=== PATIENT | female | born 1985 | race Caucasian/White ===

== ENCOUNTER 2016-12-11 15:54 | Emergency (ER) | payer OTHER, MEDICAID ==
[~2016-12-11] VITALS: Ht 157.5 cm; Wt 61.0 kg
[2016-12-11 15:59] VITALS: Ht 157.5 cm; Wt 61.0 kg
[2016-12-11 18:39] LABS: ADD UMIC YES; URINE BILIRUBIN (Dip) NEGATIVE (NEGATIVE); URINE BLOOD (Dip) 3+ (NEGATIVE); URINE COLOR LT. YELLOW (YELLOW); URINE GLUCOSE (Dip) NEGATIVE (NEGATIVE); URINE KETONES (Dip) NEGATIVE (NEGATIVE); URINE LEUKOCYTE ESTERASE (Dip) NEGATIVE (NEGATIVE); URINE NITRITE (Dip) NEGATIVE (NEGATIVE); URINE TOTAL PROTEIN (Dip) NEGATIVE (NEGATIVE); URINE UROBILINOGEN (Dip) 1.0 E.U./dL (0.1-1.0)
[2016-12-11 19:04] LABS: BACTERIA,URINE MODERATE; MUCUS,URINE MODERATE; SQUAMOUS EPITHELIAL CELL,UR FEW
[2016-12-11 19:29] LABS: ADD SCAN DIFF NO
[2016-12-11 19:32] LABS: BASOPHILS % 0.8 % (0.0-2.0); EOSINOPHILS # 0.2 10^3/ul (0.0-0.5); EOSINOPHILS % 4.7 % (0.0-7.0); HEMATOCRIT 36.6 % (37.0-47.0); HEMOGLOBIN 12.9 g/dl (12.0-16.0); LYMPHOCYTES # 1.8 10^3/ul (0.8-2.9); MEAN CORPUSCULAR HEMOGLOBIN 31.8 pg (29.0-33.0); MEAN CORPUSCULAR HGB CONC 35.2 g/dl (32.0-37.0); MEAN CORPUSCULAR VOLUME 90.1 fl (82.0-101.0); MEAN PLATELET VOLUME 11.3 fl (7.4-10.4); MONOCYTE # 0.5 10^3/ul (0.3-0.9); MONOCYTES % 9.2 % (0.0-11.0); NEUTROPHIL # 2.4 10^3/ul (1.6-7.5); NEUTROPHILS % 49.1 % (39.0-77.0); PLATELET COUNT 184 10^3/UL (140-415); RED BLOOD COUNT 4.06 10^6/ul (4.20-5.40); RED CELL DISTRIBUTION WIDTH 11.2 % (11.5-14.5); WHITE BLOOD COUNT 4.9 10^3/ul (4.8-10.8)
[2016-12-11 19:47] LABS: ALBUMIN 3.7 g/dl (3.3-4.9); ALBUMIN/GLOBULIN RATIO 1.19; BILIRUBIN,INDIRECT 0.2 mg/dl (0-1.1); BILIRUBIN,TOTAL 0.2 mg/dl (0.2-1.3); CREATININE 0.74 mg/dl (0.44-1.00); POTASSIUM 4.1 mmol/L (3.5-5.1); TOTAL PROTEIN 6.8 g/dl (6.1-8.1)
[2016-12-11] MEDS ORDERED: KETOROLAC 60 MG INJ IM STA (20:23)
--- NOTE | 2016-12-11 20:30 | RADRPT ---
PROCEDURE: US Pelvis. CLINICAL INDICATION: Left pelvic pain. Last menstrual period 11/27/2016 TECHNIQUE: Multiple sonographic images of the pelvis were obtained utilizing a transabdominal tech nique. The images were reviewed on a PACS workstation. COMPARISON: None. FINDINGS: The uterus measures 7 x 3.3 x 6.3 cm and is unremarkable. The thickness of the endometrium equals 5. 1 mm. The right ovary measures 3.3 x 2.2 x 3 cm and is unremarkable. The left ovary measures 3.8 x 2.4 x 3.2 cm and contains a 2.4 cm follicle. Color flow and spectral analysis demonstrates normal ar terial flow in both ovaries. No adnexal mass or free intrapelvic fluid is seen. IMPRESSION: No abnormality seen. 2.4 cm left ovarian follicle. Please see above. RPTAT: HJES .Bipin Martínez MD, Date Time Electronically viewed and signed by .Bipin Martínez MD, on 12/11/2016 20:30 .S/
[2016-12-11] MEDS ORDERED: IBUP-1542 PO (20:58)
--- NOTE | 2016-12-11 21:52 | ERD ---
ER Documentation Chief Complaint Date/Time DATE: 12/11/16 TIME: 21:47 Chief Complaint VB since this morning and back pain. HPI 31-year-old female patient with no significant past medical history presents to the ED as a A1 presents to the ED complaining of left pelvic pain as well as vaginal bleeding. Reports that her last menses was on November 27, 2016. States that she was diagnosed with polyps in her uterus as well as bilateral ovarian cysts. States that she has a burning pain in her left pelvic region. Denies any dysuria, urgency or frequency, nausea, vomiting, diarrhea, constipation, fever, chills. Reports that she does not think that this is her menses because it is usually regular and now it is early. Reports that she was diagnosed at [facility] with ovarian cysts. Reports that she has had a previous tubal ligation. ROS All systems reviewed and are negative except as per history of present illness. Medications Home Meds Active Scripts Ibuprofen* (Motrin*) 600 Mg Tab, 600 MG PO Q6, #30 TAB Prov:ORLANDO SOTO PA-C 12/11/16 Allergies Allergies: Coded Allergies: No Known Allergy (Unverified , 03/19/14) PMhx/Soc Hx Alcohol Use: No Hx Substance Use: No Hx Tobacco Use: No Smoking Status: Never smoker Physical Exam Vitals Vital Signs Date Time Temp Pulse Resp B/P Pulse Ox O2 Delivery O2 Flow Rate FiO2 12/11/16 15:59 98.1 68 18 93/43 97 Physical Exam Const: [id number]-[id number], well-nourished. In no acute distress. Head: Atraumatic, normocephalic Eyes: Normal Conjunctiva without injection. No purulent discharge. ENT: Normal external ear, nose. Moist oropharynx without tonsillar exudates. Non -erythematous pharynx. Uvula midline. No drooling. No trismus. Neck: No cervical midline tenderness. Full range of motion. No meningismus. No cervical lymphadenopathy. No JVD. Resp: Clear to auscultation bilaterally. No wheezing, rhonchi, rales, or crackles. No accessory muscle use. No retractions. Cardio: Regular rate and rhythm. No murmurs, rubs or gallops. Abd: Soft, left pelvic tenderness, non distended. Normal bowel sounds. No palpable masses. No rebound tenderness. No guarding. Negative McBurney's point. Negative psoas sign. Negative obturator sign. Skin: No petechiae or rashes Back: No midline tenderness. No CVA tenderness. Ext: No cyanosis, or edema. Neur: Awake and alert. Normal gait. Normal coordination. Psych: Normal Mood and Affect Results 24 hrs Laboratory Tests Test 12/11/16 18:07 12/11/16 19:19 Urine Color LT. YELLOW Urine Clarity SLIGHTLY CLOUDY Urine pH 6.0 Urine Specific [place] 1.025 Urine Ketones NEGATIVE Urine Nitrite NEGATIVE Urine Bilirubin NEGATIVE Urine Urobilinogen 1.0 E.U./dL Urine Leukocyte Esterase NEGATIVE Urine Microscopic RBC 10-25/HPF Urine Microscopic WBC 2-5/HPF Urine Squamous Epithelial Cells FEW Urine Bacteria MODERATE Urine Mucus MODERATE Urine Hemoglobin 3+ Urine Glucose NEGATIVE% Urine Total Protein NEGATIVE White Blood Count 4.910^3/ul Red Blood Count 4.0610^6/ul Hemoglobin 12.9g/dl Hematocrit 36.6% Mean Corpuscular Volume 90.1fl Mean Corpuscular Hemoglobin 31.8pg Mean Corpuscular Hemoglobin Concent 35.2g/dl Red Cell Distribution Width 11.2% Platelet Count 77860^3/UL Mean Platelet Volume 11.3fl Neutrophils % 49.1% Lymphocytes % 36.0% Monocytes % 9.2% Eosinophils % 4.7% Basophils % 0.8% Nucleated Red Blood Cells % 0.0/100WBC Neutrophils # 2.410^3/ul Lymphocytes # 1.810^3/ul Monocytes # 0.510^3/ul Eosinophils # 0.210^3/ul Basophils # 0.010^3/ul Nucleated Red Blood Cells # 0.010^3/ul Sodium Level 138mmol/L Potassium Level 4.1mmol/L Chloride Level 107mmol/L Carbon Dioxide Level 26mmol/L Anion Gap 9 Blood Urea Nitrogen 16mg/dl Creatinine 0.74mg/dl Glucose Level 90mg/dl Calcium Level 9.0mg/dl Total Bilirubin 0.2mg/dl Direct Bilirubin 0.00mg/dl Indirect Bilirubin 0.2mg/dl Aspartate Amino Transf (AST/SGOT) 37IU/L Alanine Aminotransferase (ALT/SGPT) 64IU/L Alkaline Phosphatase 99IU/L Total Protein 6.8g/dl Albumin 3.7g/dl Globulin 3.10g/dl Albumin/Globulin Ratio 1.19 Current Medications Medications (Trade) Dose Ordered Sig/Manoj Route PRN Reason Start Time Stop Time Status Last Admin Dose Admin Ketorolac Tromethamine (Toradol) 60 mg ONCE STAT IM 12/11/16 20:23 12/11/16 20:24 DC 12/11/16 20:29 Procedures/MDM 31-year-old female patient who is a A1 presents to the ED complaining of left pelvic pain and vaginal bleeding. Patient is afebrile and nontoxic- appearing. Patient has normal vital signs. Patient was further worked up with CBC, CMP, lipase, UA, urine , pelvic ultrasound. Patient's pain and symptoms have improved after treatment with ketorolac 60 mg IM. CBC: No leukocytosis. No e/o of systemic infection. No e/o anemia. CMP: No e/o severe acidosis, alkalosis, renal failure, diabetic ketoacidosis, liver disease Lipase within normal limits. Urine: No leukocyte esterase, no nitrites, no hematuria. Urine : negative PROCEDURE: US Pelvis. CLINICAL INDICATION: Left pelvic pain. Last menstrual period 11/27/2016 TECHNIQUE: Multiple sonographic images of the pelvis were obtained utilizing a transabdominal technique. The images were reviewed on a PACS workstation. COMPARISON: None. FINDINGS: The uterus measures 7 x 3.3 x 6.3 cm and is unremarkable. The thickness of the endometrium equals 5.1 mm. The right ovary measures 3.3 x 2.2 x 3 cm and is unremarkable. The left ovary measures 3.8 x 2.4 x 3.2 cm and contains a 2.4 cm follicle. Color flow and spectral analysis demonstrates normal arterial flow in both ovaries. No adnexal mass or free intrapelvic fluid is seen. IMPRESSION: No abnormality seen. 2.4 cm left ovarian follicle. Please see above. Patient has a left ovarian cyst. Low suspicion for PID, ectopic , ovarian torsion, gastritis, GERD, peptic ulcer disease, cholecystitis, choledocholithiasis, cholangitis, pancreatitis, appendicitis, bowel obstruction , ileus, volvulus, nephrolithiasis, pyelonephritis, hepatitis, perforated viscus , diverticulitis, abdominal hernia, acute abdomen, mesenteric ischemia or other emergent conditions. Discharge medications: Ibuprofen Follow up with primary care physician in 1-2 days for referral to pulverizer operator. Instructed patient to return to the ED sooner for any worsening symptoms. Patient's questions were answered. Patient understood and agreed with discharge plan. Patient discharged stable. Departure Diagnosis: Primary Impression: Vaginal bleeding Additional Impression: Ovarian cyst Laterality: left Qualified Code: N83.202 - Cyst of left ovary Condition: Stable Patient Instructions: What Are Ovarian Cysts?, Dysfunctional Uterine Bleeding Referrals: [facility] Usted se rowe hecho un examen mdico de control que le indica que no est en julio condicin que requiera tratamiento urgente en el Departamento de Emergencia. Un estudio ms profundo y el tratamiento de knight condicin pueden esperar sin ningn riesgo hasta que usted sea atendida/o en el consultorio de knight mdico o julio cl jefry. Es responsabilidad suya arreglar julio jeffery para el seguimiento del keenan. MANEJO DE CONDICIONES NO URGENTES EN EL FUTURO 1) Si usted tiene un mdico de atencin primaria: Usted debera llamar a knight mdico de atencin primaria antes de venir al departamento de emergencia. Despus de las horas de consultorio, knight doctor o knight asociado/a est disponible por telfono. El mdico o enfermero de nica en el servicio telefnico puede asesorarle por daquan medio para atender el problema, o keenan contrario se puede programar julio jeffery. 2) Si usted no tiene un mdico de atencin primaria: Llame al mdico o clnica de referencia que aparece abajo anselmo las horas de consultorio para hacer julio jeffery para que le vean. CLINICAS: [facility] [phone] [facility] [phone] [address] [facility] [phone] [address] [facility] [phone] [facility]. [place] [address] [phone] [facility] [phone] [address] [facility] YOU HAVE RECEIVED A MEDICAL SCREENING EXAM AND THE RESULTS INDICATE THAT YOU DO NOT HAVE A CONDITION THAT REQUIRES URGENT TREATMENT IN THE EMERGENCY DEPARTMENT. FURTHER EVALUATION AND TREATMENT OF YOUR CONDITION CAN WAIT UNTIL YOU ARE SEEN IN YOUR DOCTORS OFFICE WITHIN THE NEXT 1-2 DAYS. IT IS YOUR RESPONSIBILITY TO MAKE AN APPOINTMENT FOR FOLOW-UP CARE. IF YOU HAVE A PRIMARY DOCTOR --you should call your primary doctor and schedule an appointment IF YOU DO NOT HAVE A PRIMARY DOCTOR YOU CAN CALL OUR PHYSICIAN REFERRAL HOTLINE AT IF YOU CAN NOT AFFORD TO SEE A PHYSICIAN YOU CAN CHOSE FROM THE FOLLOWING [facility] [phone] [facility] [address] [facility]. [facility] [address] [facility]. [facility] [address] [facility] [facility] [address] [facility]. [facility] [address] [facility] () Usted se rowe hecho un examen mdico de control que le indica que no est en julio condicin que requiera tratamiento urgente en el Departamento de Emergencia. Un estudio ms profundo y el tratamiento de knight condicin pueden esperar sin ningn riesgo hasta que usted sea atendida/o en el consultorio de knight mdico o julio cl jefry. Es responsabilidad suya arreglar julio jeffery para el seguimiento del keenan. MANEJO DE CONDICIONES NO URGENTES EN EL FUTURO 1) Si usted tiene un mdico de atencin primaria: Usted debera llamar a knight mdico de atencin primaria antes de venir al departamento de emergencia. Despus de las horas de consultorio, knight doctor o knight asociado/a est disponible por telfono. El mdico o enfermero de nica en el servicio telefnico puede asesorarle por daquan medio para atender el problema, o keenan contrario se puede programar julio jeffery. 2) Si usted no tiene un mdico de atencin primaria: Llame al mdico o condado institucions de referencia que aparece abajo anselmo las horas de consultorio para hacer julio jeffery para que le vean. SI USTED NO PUEDE PAGAR PARA AURELIA UN MEDICO puede ir a: [facility] [address] [place] [address] [facility] [address] [place] [address] [facility] [address] [place] [address] [address] [facility] [address] [place], [place] [phone] HOME DELIVERY [place] [address] [facility] [address] [place], [place] [phone] OFFICE FAX FAVIO MENDEZ [address] [place], [place] [id number] [address] URE[address]A [place] [address] [place], [place] [phone] DR CORTEZ [facility] [address] [facility], [address] [phone] [place] [address] [place], [place] [phone] [facility] [address] [place], [place] [phone] [address] [facility] [id number] - DR LYN, MICHELINE [address], [place] [phone] DR KAN, LEONEL [address] [facility] [address], [place] [address] DR BROWN, FARID [address] [place] [address] [facility] Hours: 8:00 am - 5:00 pm Additional Instructions: Llame al doctor MAANA y patrica julio JEFFERY PARA DENTRO DE 1-2 GAMBLE para julio referencia a ginecologa. Dgale a la secretaria que nosotros le instruimos hacer esta jeffery.Avise o llame si knight condicin se empeora antes de la jeffery. Regresa aqui si peor o no mejor. ORLANDO SOTO PA-C December 11, 2016 21:52 ORLANDO SOTO PA-C December 11, 2016 21:52
== END 2016-12-11 22:13 | disposition home or self-care (01) ==
LOC: FTE 15:54
DX: N93.9 Abnormal uterine and vaginal bleeding, unspecified (principal); N83.202 Unspecified ovarian cyst, left side; R10.2 Pelvic and perineal pain
CPT/HCPCS: 76856; 80053; 81001; 85025; J1885; 81003; 96372